=== PATIENT | male | born 1975 | race Caucasian/White ===

== ENCOUNTER 2017-07-07 19:06 | Emergency (ER) | payer SELFPAY ==
[~2017-07-07] VITALS: Ht 177.8 cm; Wt 88.5 kg
[2017-07-07 19:06] VITALS: BP_SYST 117
--- NOTE | 2017-07-07 19:06 | NUR ---
Ambulatory to hallway chair accompanied by
--- NOTE | 2017-07-07 19:15 | NUR ---
Pt brought in by [facility] dept for medical clearance. Pt c/o right foot pain from gout. Pt stated that he was prescribed medication for his gout by PMD but never filled rx. Pt denies any SOB or chest pain. No acute distress noted at this time, will continue to monitor
--- NOTE | 2017-07-07 19:22 | NUR ---
NATIVIDAD Barragan [facility] examining patient.
[2017-07-07 19:47] VITALS: BP_SYST 117
--- NOTE | 2017-07-07 19:47 | NUR ---
Patient given written and verbal discharge instructions and verbalizes understanding. ER MD discussed with patient the results and treatment provided. Patient in stable condition. ID arm band removed. Rx of INDOMETHACIN given. Patient educated on pain management and to follow up with PMD. Pain Scale 0/10. Opportunity for questions provided and answered.
== END 2017-07-07 19:47 ==
LOC: SED 19:06
DX: M10.9 Gout, unspecified (principal); Z91.14 Patient's other noncompliance with medication regimen
CPT/HCPCS: 99283